=== PATIENT | male | born 1955 | race Caucasian/White ===

== ENCOUNTER 2020-12-25 12:13 | Day surgery (SDC) | payer OTHER ==
--- NOTE | 2020-12-22 13:53 | RAD REPORT ---
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 This appears grossly unchanged since 04/28/2019 study. The lungs are grossly clear. The heart is normal in size.
[2020-12-22 14:11] LABS: Absolute Lymphocytes (CBC) 0.9 K/uL (0.7-4.9); Hematocrit 49.8 % (39.6-49.0); Lymphocytes % 11.3 % (15.3-44.8); MPV 6.6 fL (7.6-11.3); Potassium 4.4 mmol/L (3.5-5.1); RBC Red Blood Cell Count 5.27 M/uL (4.33-5.43)
[2020-12-22 14:14] LABS: Protime INR 0.97
[~2020-12-25 12:13] MED LIST: ATROPINE SULF 1 MG/10 ML SYR IV ONE; FENTANYL CITR 100 MCG/2 ML ONE; HEPA 1000U/500MLS 2,000 UNIT/1,000 ML BAG IV ONE; HEPARIN 5000 UNIT/ML 1 ML VIAL ONE; LIDOCAINE 1% 20 ML MDV ONE; MIDAZOLAM HCL 2 MG/2 ML INJ ONE; NITROGLYCERIN 100 MCG/ML SYR (for cath lab use only) IV ONE; NITROGLYCERIN/D5W 25 MG/250 ML BTL IV ONE; VERAPAMIL HCL 10 MG/4 ML VIAL IV ONE
[2020-12-25] MEDS ORDERED: NA CHLORIDE 0.9% 500 ML ONE (12:46)
[2020-12-25 12:51] VITALS: TEMP 97.7
--- NOTE | 2020-12-25 16:51 | OP ---
Date of Procedure: 12/25/2020 Surgeon: FLORENCE DENNY Procedures Performed: 1.Selective coronary angiogram. 2.Distal aorta with bilateral angiogram runoff lower extremity. Indication: 1.Severe PAD. 2.Unstable angina. Access: Right radial artery 6-[place]er closed with TR band. Complications: None. Bleeding: Less than 10 mL. Description Of Procedure: After risks, benefits, and alternatives were explained, the patient agreed to proceed and signed informed consent. Then, I took a pediatric micropuncture kit and accessed rig ht radial artery and placed a 6-[place] slender sheath and took a 5-[place] long pigtail catheter into the distal aorta, performed distal aortogram and runoff, and then exchanged for a 5-[place] 4.0 catheter, engaged the left main and right coronary artery, took standard views and then removed lilliam ter and sheath and placed TR band with good hemostasis. Findings: Left heart catheterization: 1.Left main is short and normal. 2.LAD; proximal, 30% to 40%, otherwise normal artery. 3.Left circumflex; small, no significant disease. 4.RCA; large dominant with mid portion, very hazy area likely heavily calcified and representing sig nificant stenosis. Peripheral angiogram: 1.Distal aorta is patent. 2.Left common iliac artery is 90% stenosis, heavily calcified short segment. There is a diffuse 10% to 20% in the iliac and the femoral artery on the left and the SFA has diffuse 70% heavily calcified stenosis after the profunda takeoff and the mid SFA is totally occluded, short DECK ENGINEER, reconstitutes ab ove the knee and has very slow flow in the pftum-zqo-pshx circulation. However, patent arteries belo w the knee. The profunda on the left is patent. 3.Right common iliac is patent with diffuse 50% stenosis and focal area of a 50% to 60% stenosis of the femoral artery above the femoral head and in the SFA, there is a focal area of 40% to 50% stenosi s and eajwb-zqr-vixw circulation is patent with diffuse disease, 20% to 30% stenosis. Conclusion: 1.Qekicjet-tz-tpdwfi RCA stenosis, needs further evaluation with FFR versus IVUS and possible need f or PCI with atherectomy, heavily calcified lesion. 2.Severe left peripheral arterial disease including the ostial left common iliac artery and DECK ENGINEER of t he SFA, require atherectomy and intervention schedule at a higher level of care facility in [place]. Recommendations: Start aspirin 81 mg and Plavix 75 mg daily and plan for intervention on the left co mmon iliac and left SFA and FFR of RCA in [place], all in one location. SR/MODL Voice ID: [id number] Report ID: [id number]
[2020-12-25 17:24] VITALS: BP 122/50; O2SAT 94
== END 2020-12-25 16:30 | disposition home or self-care (01) ==
LOC: CCL 12:13
PROVIDERS: ATTEND Internal Medicine
DX: I25.110 Atherosclerotic heart disease of native coronary artery with unstable angina pectoris (principal); I70.213 Atherosclerosis of native arteries of extremities with intermittent claudication, bilateral legs; I70.92 Chronic total occlusion of artery of the extremities; I10 Essential (primary) hypertension; F17.210 Nicotine dependence, cigarettes, uncomplicated; Z82.49 Family history of ischemic heart disease and other diseases of the circulatory system
CPT/HCPCS: 85025; 80048; 36415; 85610; 85730; 71046; 75630; 93454; C1893; J1644 ×2; J2250; J3010; J7040

== ENCOUNTER → 2022-04-01 | Day surgery (SDC) | payer OTHER ==
[2022-03-27 15:52] LABS: Lymphocytes % 14.1 % (15.3-44.8); MCV 94.3 fL (80-100); MPV 6.5 fL (7.6-11.3); RBC Red Blood Cell Count 4.24 M/uL (4.33-5.43)
[2022-03-27 15:58] LABS: Protime INR 1.04
[2022-03-27 16:06] LABS: Potassium 4.3 mmol/L (3.5-5.1)
--- NOTE | 2022-03-28 16:16 | EKG ---
Test Date: 2022-03-27 Test Time: 15:31:28 Head Of [employer]: SETH MEASUREMENT RESULTS: Intervals: Rate: 63 UT: 168 QRSD: 94 QT: 416 QTc: 425 [place]: P: 70 UT: 168 QRS: 49 T: 66 INTERPRETIVE STATEMENTS: Normal sinus rhythm Incomplete right bundle branch block Borderline ECG Compared to ECG 03/11/2022 13:39:56 No significant changes Electronically Signed On 03-28-22 16:14:29 CDT by Jerrod Mack
[~2022-04-01] MED LIST changes: -HEPARIN 5000 UNIT/ML 1 ML VIAL ONE; -LIDOCAINE 1% 20 ML MDV ONE; +LIDOCAINE 1% MPF 30 ML VIAL ONE; +NA CHLORIDE 0.9% 500 ML ONE; -NITROGLYCERIN 100 MCG/ML SYR (for cath lab use only) IV ONE; -NITROGLYCERIN/D5W 25 MG/250 ML BTL IV ONE; -VERAPAMIL HCL 10 MG/4 ML VIAL IV ONE
[2022-04-01 17:34] VITALS: BP 148/73; O2SAT 94
--- NOTE | 2022-04-02 01:47 | OP ---
Date of Procedure: 04/01/2022 Surgeon: FLORENCE DENNY Procedures Performed: 1.Bilateral selective carotid angiogram. 2.Peripheral angiogram with runoff. Indications: 1.Severe carotid stenosis by Doppler. 2.Peripheral vascular disease with claudication and abnormal arterial Doppler. Access: Right femoral artery 4-Serbian closed with manual pressure. Complications: None. Estimated Blood Loss: Bleeding less than 10 mL. Anesthesia: Total sedation time was 45 minutes. Description Of Procedure: After risks, benefits, alternatives were explained, the patient agreed to the procedure and signed informed consent. Patient was brought into cardiac catheterization laborato and prepped and draped in usual sterile fashion. Then I accessed the right femoral artery using m icropuncture kit, placed 4-Serbian [place] sheath and took a 4-Serbian JR4 catheter in the aortic root , engaged the right common carotid artery, took standard views and then engaged the left common carot id artery, took standard views and then exchanged for pigtail placed in the distal aorta and performe d distal aortogram with runoff and then removed the catheter and sheath was removed and manual pressu re was applied. Findings: Carotid angiogram: 1.The right common carotid artery is normal, right internal carotid artery has between 70%-80% steno sis, and the right external carotid artery is normal. 2.Left common carotid artery is normal, left internal carotid artery and left external carotid arter ies are normal. Peripheral angiogram: 1.Distal aorta is with nonobstructing plaque. 2.Left common iliac has ostial 50%. In the left internal iliac artery and left common femoral arter y, there were diffuse 10%-20% stenosis. Then, profunda is patent. Following down, the SFA is patent proximally and there is a long stent with diffuse 20% ISR with focal area of 80% stenosis and then b lrqz-wil-vtxd circulation triple-vessel is present with flow all the way to the toes with mild diffus e 10% stenosis. 3.The right common iliac and right internal iliac, right common femoral; they have diffuse 10%-20% s tenosis and the right profunda is patent. The right SFA is patent with tandem lesions of 30% stenosi s in the mid to distal and then 3 vessel runoff are patent all the way to the toes with mild diffuse 10%-20% stenosis. Conclusion: 1.Severe right internal carotid artery stenosis, 70%-80%. 2.Severe left superficial femoral artery with focal in-stent restenosis of 70%-80% stenosis. Plan: 1.Once the patient goes through the ankle surgery, we will bring him back and perform a balloon tru oplasty with coating balloon of the left SFA stent and then place him on blood thinners after that. This was not done today as he is going for surgery soon and to avoid interruption of antiplatelet and also the contrast load was close to 110 mL today. 2.For the severe right carotid artery stenosis, we will plan for carotid endarterectomy as an outpat ient after he does his foot surgery. /MADHURI Voice ID: [id number] Report ID: [id number]
== END ==
LOC: CCL 12:37
PROVIDERS: ATTEND Internal Medicine
DX: I65.21 Occlusion and stenosis of right carotid artery (principal); I70.213 Atherosclerosis of native arteries of extremities with intermittent claudication, bilateral legs; T82.856A Stenosis of peripheral vascular stent, initial encounter; I25.10 Atherosclerotic heart disease of native coronary artery without angina pectoris; I10 Essential (primary) hypertension; I45.19 Other right bundle-branch block; F17.210 Nicotine dependence, cigarettes, uncomplicated; Z79.82 Long term (current) use of aspirin; Z79.899 Other long term (current) drug therapy; Z82.49 Family history of ischemic heart disease and other diseases of the circulatory system
CPT/HCPCS: 93005; 85025; 80048; 36415; 85610; 85730; 75630; 36222; 76937; C1893; J2250; J3010; J7040; J1644

== ENCOUNTER 2022-05-01 06:07 | Day surgery (SDC) | payer OTHER ==
[2022-05-01] MEDS ORDERED: Ringers Lactate 1,000 ML IV ONE ×2 (06:14→09:42)
[2022-05-01] MEDS ORDERED: NA CHLORIDE 0.9% 50 ML ONE (06:14)
[2022-05-01] MEDS: CEFAZOLIN SODIUM 1 GM/VIAL ONE ×2 (06:24→07:45)
[2022-05-01] MEDS ORDERED: FENTANYL CITR 100 MCG/2 ML ONE ×2 (07:11→08:25)
[2022-05-01] MEDS ORDERED: propofoL 200 MG/20 ML VIAL IV ONE (07:11)
[2022-05-01] MEDS ORDERED: MIDAZOLAM HCL 2 MG/2 ML INJ ONE (07:12)
[2022-05-01] MEDS ORDERED: KETOROLAC 30 MG/ML INJ ONE (07:12)
[2022-05-01] MEDS ORDERED: dexAMETHasone 10 MG/ML VIAL ONE (07:12)
[2022-05-01] MEDS ORDERED: LIDOCAINE 2% MPF 5 ML VIAL ONE (07:12)
[2022-05-01] MEDS ORDERED: ROCURONIUM 50 MG/5 ML VIAL IV ONE (07:12)
[2022-05-01] MEDS ORDERED: LIDOCAINE 1% MPF 30 ML VIAL ONE (07:26)
[2022-05-01] MEDS ORDERED: CEFAZOLIN SODIUM 1 GM/VIAL ONE ×2 (07:38→09:48)
[2022-05-01] MEDS ORDERED: EPHEDRINE SULF 50 MG/ML VIAL ONE (08:47)
[2022-05-01] MEDS: HYDROMORPHONE HCL 1 MG/ML INJ ONE ×3 (10:42→10:55)
[2022-05-01] MEDS ORDERED: HYDROMORPHONE HCL 1 MG/ML INJ ONE (10:56)
[2022-05-01 11:00] VITALS: O2SAT 96
--- NOTE | 2022-05-01 11:06 | RAD REPORT ---
EXAM DESCRIPTION: RAD - Fluoroscopy <1 Hour - 05/01/2022 10:59 am CLINICAL HISTORY: SUBTALAR JOINT FUSION CALCANEAL ORIF COMPARISON: No comparisons FINDINGS: Fluoroscopy time: 2.1 minutes
[2022-05-01] MEDS ORDERED: HYDROCODONE/APAP 10/325 TAB ONE (11:36)
[2022-05-01 11:39] VITALS: BP 142/74; TEMP 97.1
== END 2022-05-01 12:24 | disposition home or self-care (01) ==
LOC: OR 06:07
PROVIDERS: ATTEND Podiatrist Foot & Ankle Surgery
PROC: 0QSM04Z Reposition Left Tarsal with Internal Fixation Device, Open Approach (ICD-10-PCS; principal; 2022-05-01 07:30)
DX: S92.002A Unspecified fracture of left calcaneus, initial encounter for closed fracture (principal); I10 Essential (primary) hypertension; I73.9 Peripheral vascular disease, unspecified
CPT/HCPCS: 76000; 28415; J2704; J2001; J2250; J3010 ×2; J1100; J1170 ×2; J7120 ×2; J0690 ×3